=== PATIENT | female | born 1955 | race Two or more races ===

== ENCOUNTER 2018-10-31 20:29 | Inpatient (IN) | payer MEDICAID ==
[~2018-10-31] VITALS: Ht 172.7 cm; Wt 49.9 kg
[2018-11-01] MEDS ORDERED: SODIUM CHLORIDE 0.9% 1,000 ML IV ONE (00:11)
[2018-11-01] MEDS ORDERED: MORPHINE SULFATE 4 MG/ML CPJ (NOT FOR IM USE) IV STA (00:11)
[2018-11-01] MEDS ORDERED: ONDANSETRON HCL 4MG/2ML INJ IV STA (00:11)
[2018-11-01 00:40] LABS: HEMATOCRIT. 31.3 % (36.0-48.0); HEMOGLOBIN. 10.4 g/dL (12.0-16.0); MEAN CORPUSCULAR HEMOGLOBIN 27.1 pg (28.0-32.0); MEAN PLATELET VOLUME 6.6 fl (7.4-10.4); PLATELET 255 x1000/uL (130-400); RED BLOOD CELL COUNT 3.82 mill/uL (4.2-5.4); RED CELL DISTRIBUTION WIDTH 20.1 % (11.6-14.6)
[2018-11-01 00:46] LABS: CHLORIDE 105 mEq/L (98-107)
[2018-11-01 00:50] LABS: INR 1.1; PARTIAL THROMBOPLASTIN TIME 34.7 sec (23.4-31.0); PROTHROMBIN TIME 11.5 sec (9.1-11.1)
[2018-11-01] MEDS ORDERED: VANCOMYCIN 1 G PREMIX 200 ML IV ONE (03:30)
[2018-11-01] MEDS ORDERED: ONDANSETRON HCL 4MG/2ML INJ IV ONE (03:30)
[2018-11-01] MEDS ORDERED: PIPERACILLIN/TAZ 3.375G PREMIX 50 ML IV ONE (03:30)
[2018-11-01] MEDS ORDERED: SODIUM CHLORIDE 0.9% 1000ML BAG (SEPSIS BOLUS) IV ONE (03:30)
[2018-11-01] MEDS ORDERED: MORPHINE SULFATE 2 MG/ML CPJ (NOT FOR IM USE) IV ONE (03:30)
[2018-11-01] MEDS ORDERED: ACETAMINOPHEN 325MG TABLET PO PRN ×2 (03:45→13:00)
[2018-11-01] MEDS ORDERED: MORPHINE SULFATE 4 MG/ML CPJ (NOT FOR IM USE) IV NR (04:15)
[2018-11-01 04:29] LABS: CHLORIDE 105 mEq/L (98-107); INR 1.1; PROTHROMBIN TIME 11.5 sec (9.1-11.1)
[2018-11-01 05:00] LABS: PLATELET ESTIMATE NORMAL
[2018-11-01] MEDS: VANCOMYCIN 1 G PREMIX 200 ML IV NR ×2 (05:25→06:32)
[2018-11-01] MEDS ORDERED: MORPHINE SULFATE 4 MG/ML CPJ (NOT FOR IM USE) IV ONE (06:30)
[2018-11-01 12:00] VITALS: BP 119/74
[2018-11-01] MEDS ORDERED: MAGNESIUM HYDROXIDE 400MG/5ML 30ML UDC PO PRN (13:00)
[2018-11-01] MEDS ORDERED: MAGNESIUM/ALUMINUM HYDROXIDE/SIMETHICONE 30ML UDC PO PRN (13:00)
[2018-11-01] MEDS ORDERED: DIPHENHYDRAMINE 50MG/ML VIAL IV PRN (13:00)
[2018-11-01] MEDS ORDERED: ONDANSETRON HCL 4MG/2ML INJ IV PRN (13:00)
[2018-11-01] MEDS ORDERED: CLONIDINE 0.1MG TABLET PO PRN (13:00)
[2018-11-01] MEDS: SODIUM CHLORIDE 0.9% INJ 3ML FLUSH IVF SCH (14:00)
[2018-11-01] MEDS ORDERED: CEFAZOLIN 1000MG PREMIX 50 ML IV SCH (15:00)
[2018-11-01] MEDS ORDERED: VANCOMYCIN 750 MG PREMIX 150 ML IV SCH (15:00)
[2018-11-01] MEDS ORDERED: OXYCODONE HCL/ACETAMINOPHEN 5/325MG TABLET PO PRN (15:00)
[2018-11-01] MEDS ORDERED: ASCO-339 MT (15:44)
[2018-11-01] MEDS ORDERED: DET2 MT (15:44)
[2018-11-01] MEDS ORDERED: PROSTAT PO (15:44)
[2018-11-01] MEDS ORDERED: POLY17PO3 PO (15:44)
[2018-11-01] MEDS ORDERED: PROT40 MT (15:44)
[2018-11-01] MEDS ORDERED: MULT-230 MT (15:44)
[2018-11-01] MEDS ORDERED: ZINC220T MT (15:44)
[2018-11-01] MEDS ORDERED: TRAZ-213 MT (15:44)
[2018-11-01] MEDS ORDERED: BACL-141 MT (15:57)
[2018-11-01] MEDS ORDERED: HEPARIN SQ (15:57)
[2018-11-01] MEDS ORDERED: KEPP500 PO (15:57)
[2018-11-01] MEDS ORDERED: METR-218 PO (15:58)
[2018-11-01] MEDS ORDERED: MAGN800O PO (15:58)
[2018-11-01] MEDS ORDERED: CLAR10 MT (15:58)
[2018-11-01] MEDS ORDERED: CYAN10009 MT (15:58)
[2018-11-01] MEDS ORDERED: DOCU-150 MT (15:58)
[2018-11-01] MEDS ORDERED: [UNRECOGNIZED DRUG - CODE] IV (15:58)
[2018-11-01] MEDS ORDERED: CALC-889 MT (15:58)
[2018-11-01] MEDS ORDERED: VANCOMYCIN IV (15:58)
[2018-11-01 16:00] VITALS: BP 122/61
[2018-11-01] MEDS: METRONIDAZOLE 500MG TABLET PO SCH (16:14)
[2018-11-01] MEDS: HYDROMORPHONE HCL/PF 2MG/ML CPJ IV PRN (16:15)
[2018-11-01] MEDS: ENOXAPARIN 40MG/0.4ML SYR SUBCUT SCH (16:16)
[2018-11-01] MEDS ORDERED: DOCUSATE SODIUM 100MG CAPSULE PO SCH (17:00)
[2018-11-01] MEDS: TAMSULOSIN HCL 0.4MG SR CAPSULE PO SCH (17:21)
[2018-11-01] MEDS: CALCIUM CARBONATE/VITAMIN D3 500MG TABLET PO SCH (17:22)
[2018-11-01] MEDS: DOCUSATE SODIUM 100MG CAPSULE PO SCH (17:22)
[2018-11-01] MEDS: ASCORBIC ACID 500 MG TABLET PO SCH (17:22)
[2018-11-01] MEDS: VANCOMYCIN 750 MG PREMIX 150 ML IV SCH (17:22)
[2018-11-01 20:00] VITALS: BP 107/62
[2018-11-01] MEDS: GABAPENTIN 300MG CAPSULE PO SCH (21:19)
[2018-11-01] MEDS: PANTOPRAZOLE 40MG DR TABLET PO SCH (21:19)
[2018-11-01] MEDS: TRAZODONE HCL 100MG TABLET PO SCH (21:19)
[2018-11-01] MEDS: LEVETIRACETAM 500MG TABLET PO SCH (21:19)
[2018-11-01] MEDS: BACLOFEN 10MG TABLET PO SCH (21:19)
[2018-11-01] MEDS: FAMOTIDINE 20MG TABLET PO SCH (21:19)
[2018-11-01] MEDS: MORPHINE SULFATE 15MG TABLET SR PO SCH (21:20)
[2018-11-01] MEDS: MAGNESIUM HYDROXIDE 400MG/5ML 30ML UDC PO PRN (21:42)
[2018-11-02] VITALS: BP 106/54
[2018-11-02] MEDS: METRONIDAZOLE 500MG TABLET PO SCH ×4 (00:46→23:06)
[2018-11-02] MEDS: SODIUM CHLORIDE 0.9% INJ 3ML FLUSH IVF SCH ×4 (00:46→21:09)
[2018-11-02] MEDS: AZTREONAM 2 GM in DEXT 5% WATER 100 ML IV SCH ×3 (00:52→19:51)
[2018-11-02] MEDS: VANCOMYCIN 750 MG PREMIX 150 ML IV SCH ×2 (01:31→09:00)
[2018-11-02 04:00] VITALS: BP_SYST 106; BP_SYST 107; BP_DIAS 62; BP_DIAS 67
[2018-11-02] MEDS: GABAPENTIN 300MG CAPSULE PO SCH ×3 (06:30→21:08)
[2018-11-02] MEDS: PANTOPRAZOLE 40MG DR TABLET PO SCH ×2 (06:30→21:08)
[2018-11-02] MEDS: BACLOFEN 10MG TABLET PO SCH ×3 (06:30→21:08)
[2018-11-02] MEDS: CYANOCOBALAMIN 1000MCG TABLET PO SCH (06:31)
[2018-11-02] MEDS: HYDROMORPHONE HCL/PF 2MG/ML CPJ IV PRN ×2 (06:32→14:54)
[2018-11-02 08:00] VITALS: BP 91/54
[2018-11-02] MEDS: DOCUSATE SODIUM 100MG CAPSULE PO SCH ×2 (09:00→19:12)
[2018-11-02] MEDS: TAMSULOSIN HCL 0.4MG SR CAPSULE PO SCH (09:00)
[2018-11-02] MEDS: LORATADINE 10MG TABLET PO SCH (09:00)
[2018-11-02] MEDS: POLYETHYLENE GLYCOL 3350 (17GM) 1 DOSE PACK PO SCH (09:00)
[2018-11-02] MEDS ORDERED: ASCORBIC ACID 500 MG TABLET PO SCH (09:00)
[2018-11-02] MEDS: MULTIVITAMINS,THER W-MINERALS TABLET PO SCH (09:31)
[2018-11-02] MEDS: CALCIUM CARBONATE/VITAMIN D3 500MG TABLET PO SCH ×3 (09:31→19:12)
[2018-11-02] MEDS: ZINC SULFATE 220 MG ( 50 ) CAPSULE PO SCH (09:31)
[2018-11-02] MEDS: ASCORBIC ACID 500 MG TABLET PO SCH ×2 (09:31→19:12)
[2018-11-02] MEDS: LEVETIRACETAM 500MG TABLET PO SCH ×2 (09:31→21:08)
[2018-11-02] MEDS: MORPHINE SULFATE 15MG TABLET SR PO SCH ×2 (09:36→21:08)
[2018-11-02 12:00] VITALS: BP 107/63
[2018-11-02 12:55] LABS: CHLORIDE 106 mEq/L (98-107)
[2018-11-02] MEDS: ENOXAPARIN 40MG/0.4ML SYR SUBCUT SCH (14:19)
[2018-11-02 16:00] VITALS: BP 88/60
[2018-11-02] MEDS ORDERED: LIDOCAINE HCL/EPINEPHRINE 1%-EPI 1:100,000 30 ML VIAL INFIL NR (16:00)
[2018-11-02] MEDS ORDERED: LIDOCAINE HCL/EPINEPHRINE 1%-EPI 1:100,000 20 ML VIAL INFIL NR (16:00)
[2018-11-02] MEDS: MAGNESIUM HYDROXIDE 400MG/5ML 30ML UDC PO PRN (19:51)
[2018-11-02 20:00] VITALS: BP 119/65
[2018-11-02] MEDS: TRAZODONE HCL 100MG TABLET PO SCH (21:08)
[2018-11-02] MEDS: FAMOTIDINE 20MG TABLET PO SCH (21:08)
[2018-11-02] MEDS: VANCOMYCIN 1 G PREMIX 200 ML IV SCH (23:06)
[2018-11-03] VITALS: BP 87/39
[2018-11-03] MEDS: AZTREONAM 2 GM in DEXT 5% WATER 100 ML IV SCH ×3 (02:31→17:21)
[2018-11-03 04:00] VITALS: BP 105/51
[2018-11-03] MEDS: SODIUM CHLORIDE 0.9% INJ 3ML FLUSH IVF SCH ×2 (05:08→14:00)
[2018-11-03] MEDS: BACLOFEN 10MG TABLET PO SCH ×3 (06:30→21:42)
[2018-11-03] MEDS: GABAPENTIN 300MG CAPSULE PO SCH ×3 (06:30→21:43)
[2018-11-03] MEDS: METRONIDAZOLE 500MG TABLET PO SCH ×2 (06:30→17:20)
[2018-11-03] MEDS: PANTOPRAZOLE 40MG DR TABLET PO SCH ×2 (06:31→21:49)
[2018-11-03] MEDS: HYDROMORPHONE HCL/PF 2MG/ML CPJ IV PRN ×3 (06:32→17:53)
[2018-11-03] MEDS: VANCOMYCIN 1 G PREMIX 200 ML IV SCH ×2 (06:50→17:21)
[2018-11-03 08:00] VITALS: BP 105/64
[2018-11-03] MEDS: MULTIVITAMINS,THER W-MINERALS TABLET PO SCH (08:22)
[2018-11-03] MEDS: CALCIUM CARBONATE/VITAMIN D3 500MG TABLET PO SCH ×3 (08:22→17:20)
[2018-11-03] MEDS: DOCUSATE SODIUM 100MG CAPSULE PO SCH ×2 (08:22→17:20)
[2018-11-03] MEDS: ASCORBIC ACID 500 MG TABLET PO SCH ×2 (08:23→17:20)
[2018-11-03] MEDS: TAMSULOSIN HCL 0.4MG SR CAPSULE PO SCH (08:23)
[2018-11-03] MEDS: CYANOCOBALAMIN 1000MCG TABLET PO SCH (08:23)
[2018-11-03] MEDS: MORPHINE SULFATE 15MG TABLET SR PO SCH ×2 (08:23→23:21)
[2018-11-03] MEDS: LORATADINE 10MG TABLET PO SCH (08:23)
[2018-11-03] MEDS: LEVETIRACETAM 500MG TABLET PO SCH ×2 (08:23→21:43)
[2018-11-03] MEDS: POLYETHYLENE GLYCOL 3350 (17GM) 1 DOSE PACK PO SCH (08:24)
[2018-11-03] MEDS: ZINC SULFATE 220 MG ( 50 ) CAPSULE PO SCH (08:30)
[2018-11-03] MEDS: MAGNESIUM HYDROXIDE 400MG/5ML 30ML UDC PO PRN (08:30)
[2018-11-03 12:00] VITALS: BP 103/67
[2018-11-03] MEDS: ENOXAPARIN 40MG/0.4ML SYR SUBCUT SCH (14:08)
[2018-11-03 20:00] VITALS: BP 91/49
[2018-11-03] MEDS: FAMOTIDINE 20MG TABLET PO SCH (21:43)
[2018-11-03] MEDS: TRAZODONE HCL 100MG TABLET PO SCH (21:57)
[2018-11-04] VITALS: BP 107/63
[2018-11-04] MEDS: METRONIDAZOLE 500MG TABLET PO SCH ×3 (02:32→17:21)
[2018-11-04] MEDS: HYDROMORPHONE HCL 2MG TABLET PO PRN ×3 (02:32→22:35)
[2018-11-04] MEDS: AZTREONAM 2 GM in DEXT 5% WATER 100 ML IV SCH ×3 (02:34→17:22)
[2018-11-04 04:00] VITALS: BP 91/50
[2018-11-04] MEDS: BACLOFEN 10MG TABLET PO SCH ×2 (07:34→14:15)
[2018-11-04] MEDS: PANTOPRAZOLE 40MG DR TABLET PO SCH (07:34)
[2018-11-04] MEDS: GABAPENTIN 300MG CAPSULE PO SCH ×2 (07:34→14:15)
[2018-11-04] MEDS: VANCOMYCIN 1 G PREMIX 200 ML IV SCH ×2 (07:34→20:42)
[2018-11-04 08:00] VITALS: BP 91/46
[2018-11-04] MEDS: ZINC SULFATE 220 MG ( 50 ) CAPSULE PO SCH (08:50)
[2018-11-04] MEDS: MULTIVITAMINS,THER W-MINERALS TABLET PO SCH (08:50)
[2018-11-04] MEDS: MORPHINE SULFATE 15MG TABLET SR PO SCH ×2 (08:51→20:44)
[2018-11-04] MEDS: TAMSULOSIN HCL 0.4MG SR CAPSULE PO SCH (08:51)
[2018-11-04] MEDS: POLYETHYLENE GLYCOL 3350 (17GM) 1 DOSE PACK PO SCH (08:51)
[2018-11-04] MEDS: DOCUSATE SODIUM 100MG CAPSULE PO SCH ×2 (08:51→17:21)
[2018-11-04] MEDS: CYANOCOBALAMIN 1000MCG TABLET PO SCH (08:51)
[2018-11-04] MEDS: CALCIUM CARBONATE/VITAMIN D3 500MG TABLET PO SCH ×3 (08:51→17:21)
[2018-11-04] MEDS: LEVETIRACETAM 500MG TABLET PO SCH ×2 (08:51→20:43)
[2018-11-04] MEDS: LORATADINE 10MG TABLET PO SCH (08:51)
[2018-11-04] MEDS: ASCORBIC ACID 500 MG TABLET PO SCH ×2 (08:51→17:21)
[2018-11-04 12:00] VITALS: BP 96/50
[2018-11-04] MEDS: ENOXAPARIN 40MG/0.4ML SYR SUBCUT SCH (14:16)
[2018-11-04 16:00] VITALS: BP 96/59
[2018-11-04 20:00] VITALS: BP 98/55
[2018-11-04] MEDS: FAMOTIDINE 20MG TABLET PO SCH (20:43)
[2018-11-04] MEDS: TRAZODONE HCL 100MG TABLET PO SCH (20:43)
[2018-11-05] MEDS ORDERED: LEVETIRACETAM 500 MG in SODIUM CHLORIDE 0.9% 100 ML IV NR ×2
[2018-11-05] MEDS: GABAPENTIN 300MG CAPSULE PO SCH ×3 (00:04→13:38)
[2018-11-05] MEDS: BACLOFEN 10MG TABLET PO SCH ×3 (00:05→13:38)
[2018-11-05] MEDS: METRONIDAZOLE 500MG TABLET PO SCH ×3 (00:05→15:55)
[2018-11-05] MEDS ORDERED: LORAZEPAM 1MG TABLET PO NR (00:15)
[2018-11-05] MEDS: AZTREONAM 2 GM in DEXT 5% WATER 100 ML IV SCH ×3 (01:57→17:00)
[2018-11-05 04:00] VITALS: BP 120/82
[2018-11-05 08:00] VITALS: BP 98/62
[2018-11-05] MEDS: ZINC SULFATE 220 MG ( 50 ) CAPSULE PO SCH (08:22)
[2018-11-05] MEDS: ASCORBIC ACID 500 MG TABLET PO SCH ×2 (08:22→17:00)
[2018-11-05] MEDS: MULTIVITAMINS,THER W-MINERALS TABLET PO SCH (08:22)
[2018-11-05] MEDS: CYANOCOBALAMIN 1000MCG TABLET PO SCH (08:22)
[2018-11-05] MEDS: LORATADINE 10MG TABLET PO SCH (08:22)
[2018-11-05] MEDS: MORPHINE SULFATE 15MG TABLET SR PO SCH (08:23)
[2018-11-05] MEDS: TAMSULOSIN HCL 0.4MG SR CAPSULE PO SCH (08:23)
[2018-11-05] MEDS: CALCIUM CARBONATE/VITAMIN D3 500MG TABLET PO SCH ×3 (08:23→17:00)
[2018-11-05] MEDS: DOCUSATE SODIUM 100MG CAPSULE PO SCH ×2 (08:23→17:00)
[2018-11-05] MEDS: POLYETHYLENE GLYCOL 3350 (17GM) 1 DOSE PACK PO SCH (08:24)
[2018-11-05] MEDS ORDERED: LEVETIRACETAM 500 MG in SODIUM CHLORIDE 0.9% 100 ML IV SCH (09:00)
[2018-11-05] MEDS: VANCOMYCIN 1 G PREMIX 200 ML IV SCH (11:15)
[2018-11-05 12:00] VITALS: BP 112/68
[2018-11-05] MEDS: ENOXAPARIN 40MG/0.4ML SYR SUBCUT SCH (13:39)
[2018-11-05] MEDS: SODIUM CHLORIDE 0.9% INJ 3ML FLUSH IVF SCH (13:44)
[2018-11-05] MEDS: HYDROMORPHONE HCL 2MG TABLET PO PRN (15:55)
[2018-11-05 16:00] VITALS: BP 112/62
[2018-11-05 16:32] VITALS: BP 112/62
== END 2018-11-05 17:55 | DRG 364 ==
LOC: ER 20:29 → 6EST 11-01 03:36 → ENRESERV 11-01 09:01
PROVIDERS: ADMIT Internal Medicine; ATTEND Internal Medicine
PROC: 0KBP0ZZ Excision of Left Hip Muscle, Open Approach (ICD-10-PCS; principal; 2018-11-03)
PROC: 0KBN0ZZ Excision of Right Hip Muscle, Open Approach (ICD-10-PCS; 2018-11-03)
DX: L89.154 Pressure ulcer of sacral region, stage 4 (principal); E43 Unspecified severe protein-calorie malnutrition; G61.0 Guillain-Barre syndrome; L89.220 Pressure ulcer of left hip, unstageable; L89.210 Pressure ulcer of right hip, unstageable; L03.317 Cellulitis of buttock; G82.20 Paraplegia, unspecified; G62.9 Polyneuropathy, unspecified; N31.9 Neuromuscular dysfunction of bladder, unspecified; R26.2 Difficulty in walking, not elsewhere classified; G40.909 Epilepsy, unspecified, not intractable, without status epilepticus; F32.9 Major depressive disorder, single episode, unspecified; M79.7 Fibromyalgia; Z83.3 Family history of diabetes mellitus; Z74.01 Bed confinement status; Z68.1 Body mass index [BMI] 19.9 or less, adult; Z90.49 Acquired absence of other specified parts of digestive tract; Z79.899 Other long term (current) drug therapy
CPT/HCPCS: 36415; 71045; 72192; 80048; 80202; 83605; 84134; 84145; 84484; 86850; 86900; 87070; 87077; 87186; 93005; 93970; 96374; 96375; 96376; 97110; 97112; 97163; 99285; J0690; J1170; J1650; J1953; J2270; J2405; J2543; J3370; J3490; J7030; J7040; J7050; J7060; A4315

== ENCOUNTER 2019-04-24 07:13 | Emergency (ER) | payer MEDICAID ==
[~2019-04-24] VITALS: Ht 167.6 cm; Wt 56.0 kg
[~2019-04-24 07:13] MED LIST: ASCO-339 MT; BACL-141 MT; CALC-889 MT; CLAR10 MT; CYAN10009 MT; DET2 MT; DOCU-150 MT; HEPARIN SQ; KEPP500 PO; MAGN800O PO; METR-167 PO; MULT-230 MT; POLY17PO3 PO; PROSTAT PO; PROT40 MT; TRAZ-213 MT; VANCOMYCIN IV; ZINC220T MT; [UNRECOGNIZED DRUG - CODE] IV
[2019-04-24] MEDS ORDERED: LEVETIRACETAM 1000MG/100ML 100 ML IV ONE (07:30)
[2019-04-24 07:37] LABS: BASOPHILS % 0.6 % (0.0-2.0); EOSINOPHILS % 0.9 % (0.0-5.0); HEMATOCRIT. 41.7 % (36.0-48.0); LYMPHOCYTES % 44.4 % (20.0-50.0); MEAN CORPUSCULAR HEMOGLOBIN 27.7 pg (28.0-32.0); MEAN CORPUSCULAR VOLUME 82.6 fL (81.0-99.0); MEAN PLATELET VOLUME 7.3 fl (7.4-10.4); MONOCYTES % 7.7 % (2.0-8.0); NEUTROPHILS % 46.4 % (40.0-76.0); PLATELET 231 x1000/uL (130-400); RED BLOOD CELL COUNT 5.05 mill/uL (4.2-5.4); RED CELL DISTRIBUTION WIDTH 15.6 % (11.6-14.6)
[2019-04-24 07:42] LABS: CHLORIDE 105 mEq/L (98-107)
[2019-04-24 07:44] LABS: INR 1.1; PROTHROMBIN TIME 11.3 sec (9.6-11.0)
[2019-04-24] MEDS ORDERED: ONDANSETRON HCL 4MG/2ML INJ IV ONE (08:15)
[2019-04-24] MEDS ORDERED: SODIUM CHLORIDE 0.9% 1,000 ML IV ONE (08:15)
[2019-04-24 11:20] LABS: CLARITY URINE CLOUDY (CLEAR); COLOR URINE YELLOW (YELLOW); KETONES URINE 1+ (NEGATIVE); LEUKOCYTE ESTERASE URINE 2+ (NEGATIVE); NITRITE URINE NEGATIVE (NEGATIVE); OCCULT BLOOD URINE 2+ (NEGATIVE); PH URINE 6.5 (4.5-8.0); PROTEIN URINE 3+ (NEGATIVE); SPECIFIC GRAVITY URINE 1.021 (1.005-1.030)
[2019-04-24] MEDS ORDERED: KETOROLAC 15MG/ML VIAL IV ONE (11:30)
[2019-04-24] MEDS ORDERED: CEFTRIAXONE 1 G PREMIX 50 ML IV NR (11:45)
[2019-04-24 12:50] VITALS: BP 128/68
== END 2019-04-24 12:58 | disposition home or self-care (01) ==
LOC: ER 07:17
DX: G40.909 Epilepsy, unspecified, not intractable, without status epilepticus (principal); R11.2 Nausea with vomiting, unspecified; R10.9 Unspecified abdominal pain; N39.0 Urinary tract infection, site not specified; K21.9 Gastro-esophageal reflux disease without esophagitis; M79.7 Fibromyalgia; G61.0 Guillain-Barre syndrome; G82.20 Paraplegia, unspecified
CPT/HCPCS: 36415; 71045; 80053; 81003; 85025; 85610; 87077; 87086; 87186; 93005; 96365; 96367; 96375; 99284; J0696; J1885; J1953; J2405; Z7610

== ENCOUNTER 2019-07-31 11:59 | Emergency (ER) | payer MEDICAID, MEDICARE ==
[~2019-07-31] VITALS: Ht 167.6 cm; Wt 69.0 kg
[~2019-07-31 11:59] MED LIST changes: +CYAN-50 MT; -CYAN10009 MT; -ZINC220T MT; +ZINC220T4 MT
[2019-07-31] MEDS ORDERED: SODIUM CHLORIDE 0.9% 1,000 ML IV ONE (12:14)
[2019-07-31 12:39] LABS: BASOPHILS % 1.1 % (0.0-2.0); EOSINOPHILS % 5.6 % (0.0-5.0); HEMATOCRIT. 36.8 % (36.0-48.0); HEMOGLOBIN. 12.4 g/dL (12.0-16.0); LYMPHOCYTES % 27.5 % (20.0-50.0); MEAN CORPUSCULAR HEMOGLOBIN 28.6 pg (28.0-32.0); MEAN CORPUSCULAR VOLUME 85.1 fL (81.0-99.0); MEAN PLATELET VOLUME 7.1 fl (7.4-10.4); MONOCYTES % 10.4 % (2.0-8.0); NEUTROPHILS % 55.4 % (40.0-76.0); PLATELET 223 x1000/uL (130-400); RED BLOOD CELL COUNT 4.33 mill/uL (4.2-5.4); RED CELL DISTRIBUTION WIDTH 13.7 % (11.6-14.6)
[2019-07-31 12:46] LABS: INR 1.1; PROTHROMBIN TIME 10.9 sec (9.6-11.0)
[2019-07-31 12:47] LABS: CHLORIDE 108 mEq/L (98-107)
[2019-07-31 12:51] LABS: ETHANOL BLOOD < 10 mg/dL
[2019-07-31 12:58] LABS: CARBAMAZEPINE < 0.5 ug/mL (4-12); PHENOBARBITAL < 2.1 ug/mL (15.0-40.0); VALPROIC ACID < 3.0 ug/mL (50-100)
[2019-07-31 14:18] LABS: CLARITY URINE CLOUDY (CLEAR); COLOR URINE YELLOW (YELLOW); KETONES URINE TRACE (NEGATIVE); LEUKOCYTE ESTERASE URINE 3+ (NEGATIVE); NITRITE URINE POSITIVE (NEGATIVE); OCCULT BLOOD URINE 3+ (NEGATIVE); PROTEIN URINE TRACE (NEGATIVE)
[2019-07-31 14:34] LABS: METHADONE URINE SCREEN NEGATIVE (NEGATIVE); OPIATES URINE SCREEN PRESUMTIVE POSITIVE (NEGATIVE); PHENCYCLIDINE URINE SCREEN NEGATIVE (NEGATIVE)
[2019-07-31 14:35] LABS: *AMPHETAMINES SCREEN URINE NEGATIVE (NEGATIVE); *BARBITURATES SCREEN URINE NEGATIVE (NEGATIVE); *BENZODIAZEPINES SCREEN URINE NEGATIVE (NEGATIVE); *COCAINE SCREEN URINE NEGATIVE (NEGATIVE); CANNABINOID URINE SCREEN NEGATIVE (NEGATIVE)
[2019-07-31] MEDS ORDERED: CEFTRIAXONE 1 G PREMIX 50 ML IV ONE (15:15)
[2019-07-31] MEDS ORDERED: ONDANSETRON HCL 4MG/2ML INJ IV STA (15:24)
[2019-07-31] MEDS ORDERED: MORPHINE SULFATE 4 MG/ML CPJ (NOT FOR IM USE) IV STA (15:24)
[2019-07-31 19:07] VITALS: BP 105/61
== END 2019-07-31 19:19 ==
LOC: ER 11:59 → CANBEDREQ 17:37 → ER 19:19
DX: R56.9 Unspecified convulsions (principal); N39.0 Urinary tract infection, site not specified; G89.29 Other chronic pain; K21.9 Gastro-esophageal reflux disease without esophagitis; M79.7 Fibromyalgia; G61.0 Guillain-Barre syndrome; Z94.1 Heart transplant status
CPT/HCPCS: 36415; 51702; 70450; 71045; 80053; 80156; 80165; 80184; 80185; 80305; 80320; 81003; 83605; 84484; 85025; 85610; 87040; 87077; 87086; 87186; 93005; 96365; 96366; 96375; 99284; J0696; J2270; J2405; J7030; G0480

== ENCOUNTER 2022-01-16 14:36 | Inpatient (IN) | payer MEDICARE, MEDICAID ==
[~2022-01-16] VITALS: Ht 172.7 cm; Wt 95.7 kg
[~2022-01-16 14:36] MED LIST changes: +MAGN24002 PO; -MAGN800O PO; -TRAZ-213 MT; +TRAZ-252 MT
[2022-01-16] MEDS ORDERED: SODIUM CHLORIDE 0.9% 1000ML BAG (SEPSIS BOLUS) IV ONE (15:00)
[2022-01-16] MEDS ORDERED: VANCOMYCIN 1G PREMIX 200 ML IV ONE (15:00)
[2022-01-16] MEDS ORDERED: PIPERACILLIN/TAZ 3.375G PREMIX 50 ML IV ONE (15:00)
[2022-01-16] MEDS ORDERED: VANCOMYCIN 1GM PMX (XELLIA) 200 ML IV SCH (15:15)
[2022-01-16] MEDS ORDERED: ACETAMINOPHEN 650MG SUPP PR ONE (15:30)
[2022-01-16 15:58] LABS: CLARITY URINE CLOUDY (CLEAR); COLOR URINE YELLOW (YELLOW); KETONES URINE 1+ (NEGATIVE); LEUKOCYTE ESTERASE URINE 1+ (NEGATIVE); NITRITE URINE POSITIVE (NEGATIVE); OCCULT BLOOD URINE NEGATIVE (NEGATIVE); PH URINE 5.5 (4.5-8.0); PROTEIN URINE TRACE (NEGATIVE); SPECIFIC GRAVITY URINE 1.027 (1.005-1.030)
[2022-01-16 16:10] LABS: HEMATOCRIT. 40.9 % (36.0-48.0); HEMOGLOBIN. 13.6 g/dL (12.0-16.0); LYMPHOCYTES % 23.4 % (20.0-50.0); MEAN CORPUSCULAR HEMOGLOBIN 28.1 pg (28.0-32.0); MEAN CORPUSCULAR VOLUME 84.6 fL (81.0-99.0); MEAN PLATELET VOLUME 9.4 fl (7.4-10.4); MONOCYTES % 2.7 % (2.0-8.0); NEUTROPHILS % 72.9 % (40.0-76.0); PLATELET 160 x1000/uL (130-400); RED BLOOD CELL COUNT 4.84 mill/uL (4.2-5.4); RED CELL DISTRIBUTION WIDTH 14.1 % (11.6-14.6)
[2022-01-16 16:18] LABS: CHLORIDE 113 mEq/L (98-107)
[2022-01-16] MEDS ORDERED: IPRATROPIUM/ALBUTEROL 0.5-3(2.5)MG/3ML NEB HHN PRN (19:15)
[2022-01-16] MEDS ORDERED: PIPERACILLIN/TAZOBACTAM 3.375 G in DEXTROSE 5% WATER 50 ML IV SCH (19:15)
[2022-01-16] MEDS ORDERED: CLONIDINE 0.1MG TABLET PO PRN (19:15)
[2022-01-16] MEDS ORDERED: ONDANSETRON HCL 4MG/2ML INJ IV PRN (19:15)
[2022-01-16] MEDS ORDERED: ACETAMINOPHEN 325MG TABLET PO PRN (19:15)
[2022-01-16] MEDS: PIPERACILLIN/TAZOBACTAM 3.375G in DEXT 5% WATER 50ML IV SCH (22:24)
[2022-01-17 04:19] LABS: BASOPHILS % 0.3 % (0.0-2.0); EOSINOPHILS % 0.2 % (0.0-5.0); HEMATOCRIT. 36.9 % (36.0-48.0); HEMOGLOBIN. 12.1 g/dL (12.0-16.0); LYMPHOCYTES % 39.6 % (20.0-50.0); MEAN CORPUSCULAR HEMOGLOBIN 28.3 pg (28.0-32.0); MEAN CORPUSCULAR VOLUME 86.1 fL (81.0-99.0); MEAN PLATELET VOLUME 8.6 fl (7.4-10.4); NEUTROPHILS % 47.9 % (40.0-76.0); PLATELET 112 x1000/uL (130-400); RED BLOOD CELL COUNT 4.28 mill/uL (4.2-5.4); RED CELL DISTRIBUTION WIDTH 14.3 % (11.6-14.6)
[2022-01-17 04:31] LABS: CHLORIDE 120 mEq/L (98-107)
[2022-01-17] MEDS ORDERED: DEXTROSE 50% WATER 50ML SYRINGE IV PRN (06:15)
[2022-01-17] MEDS: BLOOD SUGAR DIAGNOSTIC STRIP TEST SCH ×2 (06:19→11:31)
[2022-01-17] MEDS: INSULIN LISPRO 100 UNITS/ML SUBCUT SCH ×3 (06:19→12:40)
[2022-01-17] MEDS: PIPERACILLIN/TAZOBACTAM 3.375G in DEXT 5% WATER 50ML IV SCH ×3 (06:44→21:59)
[2022-01-17] MEDS ORDERED: VANCOMYCIN 1,000 MG in DEXT 5% WATER 250 ML IV SCH (09:30)
[2022-01-17 12:00] VITALS: BP 105/66
[2022-01-17] MEDS ORDERED: POTASSIUM CHLORIDE INJ 40 MEQ in DEXT 5% WATER 250 ML IV NR (13:00)
[2022-01-17] MEDS ORDERED: POLYETHYLENE GLYCOL 3350 (17GM) 1 DOSE PACK PO PRN (14:45)
[2022-01-17 15:33] VITALS: BP 105/66
[2022-01-17 16:00] VITALS: BP 110/68
[2022-01-17] MEDS ORDERED: POTASSIUM PHOS,M-BASIC-D-BASIC 20 MMOL in DEXT 5% WATER 243.3333 ML IV ONE (16:00)
[2022-01-17] MEDS ORDERED: POTASSIUM CHLORIDE 20MEQ/PACKET PO NR (16:30)
[2022-01-17] MEDS ORDERED: LEVETIRACETAM 500MG TABLET PO SCH (17:00)
[2022-01-17] MEDS: DOCUSATE SODIUM 100MG CAPSULE PO SCH (17:35)
[2022-01-17] MEDS ORDERED: KCL 20MEQ/100ML PREMIX 100 ML IV NR (18:00)
[2022-01-17 20:00] VITALS: BP 117/67
[2022-01-17] MEDS: TRAZODONE HCL 50MG TABLET PO SCH (21:59)
[2022-01-17 23:49] VITALS: BP 129/57
[2022-01-18] MEDS: DIPHENHYDRAMINE 50MG/ML VIAL IV PRN ×2 (01:35→08:43)
[2022-01-18 04:00] VITALS: BP 111/67
[2022-01-18] MEDS: VANCOMYCIN 1GM PMX (XELLIA) 200 ML IV SCH ×2 (04:06→18:21)
[2022-01-18] MEDS: PIPERACILLIN/TAZOBACTAM 3.375G in DEXT 5% WATER 50ML IV SCH ×3 (06:20→22:00)
[2022-01-18 08:00] VITALS: BP 124/78
[2022-01-18] MEDS: MULTIVITAMINS,THER W-MINERALS TABLET PO SCH (08:41)
[2022-01-18] MEDS: LORATADINE 10MG TABLET PO SCH (08:42)
[2022-01-18] MEDS: PANTOPRAZOLE 40MG DR TABLET PO SCH (08:42)
[2022-01-18] MEDS: DOCUSATE SODIUM 100MG CAPSULE PO SCH ×2 (08:42→17:00)
[2022-01-18] MEDS: CYANOCOBALAMIN 1000MCG TABLET PO SCH (08:42)
[2022-01-18] MEDS ORDERED: MORPHINE SULFATE 2 MG/ML CPJ (NOT FOR IM USE) IV PRN (09:30)
[2022-01-18] MEDS ORDERED: HYDROCODONE/ACETAMINOPHEN 5/325MG TABLET PO PRN (09:30)
[2022-01-18 12:00] VITALS: BP 130/65
[2022-01-18 13:37] LABS: CHLORIDE 118 mEq/L (98-107)
[2022-01-18 13:44] LABS: PHOSPHORUS 2.4 mg/dL (2.5-4.9)
[2022-01-18 16:00] VITALS: BP 124/62
[2022-01-18 20:00] VITALS: BP 146/77
[2022-01-19] VITALS: BP 154/82
[2022-01-19] MEDS: TRAZODONE HCL 50MG TABLET PO SCH ×2 (01:34→20:45)
[2022-01-19] MEDS: VANCOMYCIN 750 MG in DEXT 5% WATER 250 ML IV SCH ×2 (06:00→15:46)
[2022-01-19] MEDS: PIPERACILLIN/TAZOBACTAM 3.375G in DEXT 5% WATER 50ML IV SCH ×3 (06:00→22:00)
[2022-01-19 06:59] LABS: BASOPHILS % 0.5 % (0.0-2.0); HEMATOCRIT. 36.4 % (36.0-48.0); HEMOGLOBIN. 12.2 g/dL (12.0-16.0); LYMPHOCYTES % 33.4 % (20.0-50.0); MEAN CORPUSCULAR VOLUME 84.1 fL (81.0-99.0); MEAN PLATELET VOLUME 9.2 fl (7.4-10.4); MONOCYTES % 7.8 % (2.0-8.0); NEUTROPHILS % 55.3 % (40.0-76.0); PLATELET 139 x1000/uL (130-400); RED BLOOD CELL COUNT 4.33 mill/uL (4.2-5.4); RED CELL DISTRIBUTION WIDTH 14.4 % (11.6-14.6)
[2022-01-19 07:07] LABS: CHLORIDE 115 mEq/L (98-107)
[2022-01-19 08:00] VITALS: BP 147/83
[2022-01-19] MEDS ORDERED: THIAMINE HCL 100MG TABLET ONE (09:27)
[2022-01-19] MEDS ORDERED: DOCUSATE SODIUM 100MG CAPSULE ONE (09:28)
[2022-01-19] MEDS ORDERED: PANTOPRAZOLE 40MG DR TABLET PO ONE (09:29)
[2022-01-19] MEDS: MULTIVITAMINS,THER W-MINERALS TABLET PO SCH (09:42)
[2022-01-19] MEDS: LORATADINE 10MG TABLET PO SCH (09:42)
[2022-01-19] MEDS: CYANOCOBALAMIN 1000MCG TABLET PO SCH (09:43)
[2022-01-19] MEDS: DOCUSATE SODIUM 100MG CAPSULE PO SCH ×2 (09:43→16:07)
[2022-01-19] MEDS: PANTOPRAZOLE 40MG DR TABLET PO SCH (09:43)
[2022-01-19] MEDS ORDERED: POTASSIUM CHLORIDE 20MEQ TABLET SR PO NR (11:00)
[2022-01-19 12:00] VITALS: BP 154/75
[2022-01-19 16:00] VITALS: BP 150/73
[2022-01-19 20:00] VITALS: BP 123/70
[2022-01-19 23:46] VITALS: BP 130/68
[2022-01-20 04:00] VITALS: BP 137/73
[2022-01-20] MEDS: PIPERACILLIN/TAZOBACTAM 3.375G in DEXT 5% WATER 50ML IV SCH ×2 (06:00→13:44)
[2022-01-20] MEDS ORDERED: VANCOMYCIN 750MG PMX (XELLIA) 150 ML IV SCH (06:00)
[2022-01-20 08:00] VITALS: BP 152/74
[2022-01-20] MEDS ORDERED: FAMOTIDINE 20MG TABLET PO SCH (09:00)
[2022-01-20] MEDS: CYANOCOBALAMIN 1000MCG TABLET PO SCH (09:00)
[2022-01-20] MEDS: DOCUSATE SODIUM 100MG CAPSULE PO SCH ×2 (09:36→17:00)
[2022-01-20] MEDS: MULTIVITAMINS,THER W-MINERALS TABLET PO SCH (09:37)
[2022-01-20] MEDS: LORATADINE 10MG TABLET PO SCH (09:38)
[2022-01-20 10:48] LABS: CHLORIDE 109 mEq/L (98-107)
[2022-01-20 12:00] VITALS: BP 132/80
[2022-01-20] MEDS ORDERED: POTASSIUM CHLORIDE 20MEQ TABLET SR PO NR (13:00)
[2022-01-20 16:00] VITALS: BP 146/75
[2022-01-20 19:31] VITALS: BP 146/75
[2022-01-20 19:45] VITALS: BP 165/90
== END 2022-01-20 21:05 | DRG 871 ==
LOC: ER 14:42 → EDBEDREQ 16:20 → MICUSO 17:28 → EDBEDREQTM 17:29 → EDBEDREQSVC 17:29 → EDBEDREQ 17:29 → 8WST 01-17 12:24
PROVIDERS: ADMIT Internal Medicine; ATTEND Internal Medicine
PROC: 02HV33Z Insertion of Infusion Device into Superior Vena Cava, Percutaneous Approach (ICD-10-PCS; principal; 2022-01-20)
PROC: B5181ZA Fluoroscopy of Superior Vena Cava using Low Osmolar Contrast, Guidance (ICD-10-PCS; 2022-01-20)
PROC: B548ZZA Ultrasonography of Superior Vena Cava, Guidance (ICD-10-PCS; 2022-01-20)
DX: A41.2 Sepsis due to unspecified staphylococcus (principal); J18.9 Pneumonia, unspecified organism; G82.20 Paraplegia, unspecified; N39.0 Urinary tract infection, site not specified; G61.0 Guillain-Barre syndrome; E87.6 Hypokalemia; G40.909 Epilepsy, unspecified, not intractable, without status epilepticus; I10 Essential (primary) hypertension; M06.9 Rheumatoid arthritis, unspecified; F32.A Depression, unspecified; I25.10 Atherosclerotic heart disease of native coronary artery without angina pectoris; G62.9 Polyneuropathy, unspecified; F41.9 Anxiety disorder, unspecified; K21.9 Gastro-esophageal reflux disease without esophagitis; M19.90 Unspecified osteoarthritis, unspecified site; S90.31XA Contusion of right foot, initial encounter; I27.21 Secondary pulmonary arterial hypertension; I08.1 Rheumatic disorders of both mitral and tricuspid valves; B96.1 Klebsiella pneumoniae [K. pneumoniae] as the cause of diseases classified elsewhere; Z20.822 Contact with and (suspected) exposure to COVID-19; Z79.899 Other long term (current) drug therapy; Z95.1 Presence of aortocoronary bypass graft; X58.XXXA Exposure to other specified factors, initial encounter; Y93.89 Activity, other specified; Y92.89 Other specified places as the place of occurrence of the external cause; Y99.8 Other external cause status
CPT/HCPCS: 36415; 36573; 71045; 80048; 80053; 80202; 81003; 82962; 83036; 83605; 83735; 84100; 84145; 84484; 85025; 87077; 87186; 87426; 93005; 93306; 93970; 97022; 97162; 99291; C1725; C1769; C1893; J1200; J2270; J2543; J3370; J3480; J7030; J7060; A4315

== ENCOUNTER 2022-09-08 07:32 | Inpatient (IN) | payer MEDICARE, MEDICAID ==
[2022-09-08] VITALS (23 sets, daily range): BP systolic 62–106; BP diastolic 41–65
[~2022-09-08] VITALS: Ht 165.1 cm; Wt 89.4 kg
[~2022-09-08 07:32] MED LIST changes: -VANCOMYCIN IV
[2022-09-08] MEDS ORDERED: ACETAMINOPHEN 650MG SUPP PR STA (07:43)
[2022-09-08] MEDS ORDERED: VANCOMYCIN 1G PREMIX 200 ML IV ONE (07:45)
[2022-09-08] MEDS ORDERED: PIPERACILLIN/TAZ 3.375G PREMIX 50 ML IV ONE (07:45)
[2022-09-08] MEDS ORDERED: SODIUM CHLORIDE 0.9% 1000ML BAG (SEPSIS BOLUS) IV ONE (07:45)
[2022-09-08 08:30] LABS: HEMOGLOBIN. 14.5 g/dL (12.0-16.0); MEAN CORPUSCULAR HEMOGLOBIN 29.1 pg (28.0-32.0); MEAN CORPUSCULAR VOLUME 86.4 fL (81.0-99.0); MEAN PLATELET VOLUME 8.9 fl (7.4-10.4); PLATELET 233 x1000/uL (130-400); RED BLOOD CELL COUNT 4.98 mill/uL (4.2-5.4); RED CELL DISTRIBUTION WIDTH 13.8 % (11.6-14.6)
[2022-09-08 08:41] LABS: CHLORIDE 116 mEq/L (98-107)
[2022-09-08] MEDS ORDERED: NOREPINEPHRINE 8MG/250ML PMX 250 ML IV STA (09:38)
[2022-09-08 09:45] LABS: NUCLEATED RED BLOOD CELLS 1 /100 WBC; PLATELET ESTIMATE NORMAL
[2022-09-08] MEDS ORDERED: NOREPINEPHRINE 8 MG in DEXT 5% WATER 242 ML IV PRN (10:00)
[2022-09-08 10:29] LABS: INR 1.5; PROTHROMBIN TIME 15.5 sec (9.6-11.0)
[2022-09-08] MEDS ORDERED: NOREPINEPHRINE 8MG/250ML PMX 250 ML IV PRN (15:15)
[2022-09-08] MEDS ORDERED: NOREPINEPHRINE 8 MG in DEXTROSE 5% WATER 250 ML IV PRN (15:30)
[2022-09-08] MEDS ORDERED: ACETAMINOPHEN 325MG TABLET PO PRN (15:45)
[2022-09-08] MEDS ORDERED: PIPERACILLIN/TAZ 3.375G PREMIX 50 ML IV SCH (15:45)
[2022-09-08] MEDS ORDERED: ONDANSETRON HCL 4MG/2ML INJ IV PRN (15:45)
[2022-09-08] MEDS: SODIUM CHLORIDE 0.9% 1,000 ML IV SCH ×2 (15:58→16:57)
[2022-09-08] MEDS ORDERED: PIPERACILLIN/TAZ 3.375G PREMIX 50 ML IV NR (16:00)
[2022-09-08 17:33] LABS: BG BASE EXCESS -11.4 mmol/L (-2.0-2.0); BG CARBOXYHEMOGLOBIN 0.3 % (0.5-1.5); BG FRACTION INSPIRED OXYGEN 100; BG HCO3 ACT 13.1 mmol/L (22.0-26.0); BG METHEMOGLOBIN 0.6 % (0.0-1.5); BG OXYHEMOGLOBIN 97.1 % (94.0-97.0); BG PCO2 26.5 mmHg (35.0-45.0); BG PH 7.313 (7.350-7.450); BG PO2 102.9 mmHg (75.0-100.0); BG SAMPLE SITE RIGHT BRACHIAL; BG TOTAL HEMOGLOBIN 13.6 g/dL (12.0-18.0); BG VENT MODE MASK - NRB
[2022-09-08] MEDS ORDERED: DEXTROSE 50% WATER 50ML SYRINGE IV PRN (20:00)
[2022-09-08] MEDS ORDERED: POTASSIUM CHLORIDE INJ 40 MEQ in DEXT 5% WATER 500 ML IV ONE (20:00)
[2022-09-08] MEDS: PHENYLEPHRINE 50 MG in DEXT 5% WATER 245 ML IV PRN (20:38)
[2022-09-08] MEDS: INSULIN LISPRO 100 UNITS/ML SUBCUT SCH (21:00)
[2022-09-08] MEDS ORDERED: VANCOMYCIN 750MG PREMIX 150 ML IV NR (21:00)
[2022-09-08] MEDS: PANTOPRAZOLE SODIUM 40 MG/VIAL IV SCH (22:02)
[2022-09-08] MEDS: BLOOD SUGAR DIAGNOSTIC STRIP TEST SCH (22:02)
[2022-09-08] MEDS: ENOXAPARIN 30MG/0.3ML SYR SUBCUT SCH (22:06)
[2022-09-08] MEDS ORDERED: PIPERACILLIN/TAZOBACTAM 3.375G in DEXT 5% WATER 50ML IV SCH (23:00)
[2022-09-09] VITALS (97 sets, daily range): BP systolic 59–178; BP diastolic 27–109
[2022-09-09] MEDS: PIPERACILLIN/TAZOBACTAM 3.375G in DEXT 5% WATER 50ML IV SCH ×4 (00:05→21:12)
[2022-09-09 00:19] LABS: CLARITY URINE TURBID (CLEAR); COLOR URINE DARK YELLOW (YELLOW); KETONES URINE TRACE (NEGATIVE); LEUKOCYTE ESTERASE URINE 1+ (NEGATIVE); NITRITE URINE NEGATIVE (NEGATIVE); OCCULT BLOOD URINE TRACE (NEGATIVE); PROTEIN URINE 2+ (NEGATIVE); SPECIFIC GRAVITY URINE 1.024 (1.005-1.030)
[2022-09-09 01:19] LABS: CREATINE KINASE MB FRACTION 1.4 ng/mL (0.5-3.6)
[2022-09-09] MEDS: PHENYLEPHRINE 50 MG in DEXT 5% WATER 245 ML IV PRN ×5 (01:28→22:22)
[2022-09-09] MEDS: INSULIN LISPRO 100 UNITS/ML SUBCUT SCH ×4 (05:35→21:00)
[2022-09-09] MEDS: BLOOD SUGAR DIAGNOSTIC STRIP TEST SCH ×3 (05:35→21:11)
[2022-09-09 06:08] LABS: HEMATOCRIT. 35.6 % (36.0-48.0); HEMOGLOBIN. 11.8 g/dL (12.0-16.0); MEAN CORPUSCULAR HEMOGLOBIN 28.5 pg (28.0-32.0); MEAN CORPUSCULAR VOLUME 86.1 fL (81.0-99.0); MEAN PLATELET VOLUME 8.9 fl (7.4-10.4); PLATELET 185 x1000/uL (130-400); RED BLOOD CELL COUNT 4.14 mill/uL (4.2-5.4); RED CELL DISTRIBUTION WIDTH 14.4 % (11.6-14.6)
[2022-09-09 06:46] LABS: CHLORIDE 113 mEq/L (98-107)
[2022-09-09 07:40] LABS: CREATINE KINASE MB FRACTION 1.8 ng/mL (0.5-3.6)
[2022-09-09 09:26] LABS: PLATELET ESTIMATE NORMAL
[2022-09-09 09:59] LABS: BG BASE EXCESS -12.7 mmol/L (-2.0-2.0); BG CARBOXYHEMOGLOBIN 0.3 % (0.5-1.5); BG DEOXYHEMOGLOBIN 1.1 % (0.0-5.0); BG METHEMOGLOBIN 0.4 % (0.0-1.5); BG OXYGEN SATURATION 98.9 % (92.0-98.5); BG OXYHEMOGLOBIN 98.2 % (94.0-97.0); BG PH 7.221 (7.350-7.450); BG PO2 158.6 mmHg (75.0-100.0); BG SAMPLE SITE RIGHT RADIAL; BG TOTAL HEMOGLOBIN 12.5 g/dL (12.0-18.0); BG VENT MODE MASK - NRB
[2022-09-09] MEDS: PANTOPRAZOLE SODIUM 40 MG/VIAL IV SCH (10:06)
[2022-09-09] MEDS: ENOXAPARIN 30MG/0.3ML SYR SUBCUT SCH (10:06)
[2022-09-09] MEDS: SODIUM CHLORIDE 0.9% 1,000 ML IV SCH (10:07)
[2022-09-09] MEDS ORDERED: POTASSIUM CHLORIDE INJ 40 MEQ in DEXT 5% WATER 250 ML IV ONE (10:15)
[2022-09-09] MEDS: KCL 20MEQ/100ML X 2 FOR TOTAL KCL 40MEQ/200ML IV SCH ×2 (12:51→16:22)
[2022-09-09] MEDS: SODIUM BICARBONATE 100 MEQ in SODIUM CHLORIDE 0.45% 1,000 ML IV SCH (12:53)
[2022-09-09 15:10] LABS: BG BASE EXCESS -10.2 mmol/L (-2.0-2.0); BG CARBOXYHEMOGLOBIN 0.4 % (0.5-1.5); BG DEOXYHEMOGLOBIN 1.2 % (0.0-5.0); BG METHEMOGLOBIN 0.3 % (0.0-1.5); BG OXYGEN SATURATION 98.8 % (92.0-98.5); BG OXYHEMOGLOBIN 98.1 % (94.0-97.0); BG PCO2 36.7 mmHg (35.0-45.0); BG PH 7.258 (7.350-7.450); BG PO2 133.9 mmHg (75.0-100.0); BG SAMPLE SITE RIGHT RADIAL; BG TOTAL HEMOGLOBIN 14.5 g/dL (12.0-18.0); BG VENT MODE MASK - NRB
[2022-09-09] MEDS ORDERED: VANCOMYCIN 1G PREMIX 200 ML IV SCH (18:00)
[2022-09-09] MEDS ORDERED: VANCOMYCIN 1250MG in DEXTROSE 5% WATER 250ML IV SCH (21:00)
[2022-09-10] VITALS (74 sets, daily range): BP systolic 100–157; BP diastolic 55–88
[2022-09-10] MEDS: SODIUM BICARBONATE 100 MEQ in SODIUM CHLORIDE 0.45% 1,000 ML IV SCH (00:52)
[2022-09-10] MEDS: PHENYLEPHRINE 50 MG in DEXT 5% WATER 245 ML IV PRN ×3 (00:53→16:05)
[2022-09-10] MEDS: PIPERACILLIN/TAZOBACTAM 3.375G in DEXT 5% WATER 50ML IV SCH ×3 (05:08→21:58)
[2022-09-10] MEDS: INSULIN LISPRO 100 UNITS/ML SUBCUT SCH ×4 (05:47→21:00)
[2022-09-10] MEDS: BLOOD SUGAR DIAGNOSTIC STRIP TEST SCH ×4 (05:47→21:57)
[2022-09-10 06:14] LABS: CHLORIDE 111 mEq/L (98-107)
[2022-09-10] MEDS ORDERED: POTASSIUM CHLORIDE INJ 40 MEQ in DEXT 5% WATER 250 ML IV ONE (08:00)
[2022-09-10] MEDS: ENOXAPARIN 40MG/0.4ML SYR SUBCUT SCH (08:58)
[2022-09-10] MEDS: PANTOPRAZOLE SODIUM 40 MG/VIAL IV SCH (08:58)
[2022-09-10] MEDS: KCL 20MEQ/100ML X 2 FOR TOTAL KCL 40MEQ/200ML IV SCH ×2 (09:01→12:03)
[2022-09-10] MEDS ORDERED: FUROSEMIDE 20MG/2ML VIAL IVP NR (10:00)
[2022-09-10 11:40] LABS: BG BASE EXCESS -2.9 mmol/L (-2.0-2.0); BG CARBOXYHEMOGLOBIN 0.3 % (0.5-1.5); BG DEOXYHEMOGLOBIN 2.9 % (0.0-5.0); BG FRACTION INSPIRED OXYGEN 50; BG HCO3 ACT 19.7 mmol/L (22.0-26.0); BG METHEMOGLOBIN 0.4 % (0.0-1.5); BG OXYGEN SATURATION 97.1 % (92.0-98.5); BG OXYHEMOGLOBIN 96.4 % (94.0-97.0); BG PCO2 28.2 mmHg (35.0-45.0); BG PH 7.463 (7.350-7.450); BG PO2 88.1 mmHg (75.0-100.0); BG SAMPLE SITE RIGHT RADIAL; BG TOTAL HEMOGLOBIN 11.8 g/dL (12.0-18.0); BG TOTAL RESPIRATORY RATE 39 b/min; BG VENT MODE MASK - BIPAP
[2022-09-10] MEDS: VANCOMYCIN 1G PREMIX 200 ML IV SCH (17:29)
[2022-09-10] MEDS ORDERED: VANCOMYCIN 1G PREMIX 200 ML IV SCH (18:00)
[2022-09-11] VITALS (53 sets, daily range): BP systolic 96–140; BP diastolic 36–90
[2022-09-11] MEDS: PHENYLEPHRINE 50 MG in DEXT 5% WATER 245 ML IV PRN ×2 (01:37→11:16)
[2022-09-11] MEDS: PIPERACILLIN/TAZOBACTAM 3.375G in DEXT 5% WATER 50ML IV SCH ×3 (06:00→22:08)
[2022-09-11] MEDS: BLOOD SUGAR DIAGNOSTIC STRIP TEST SCH ×4 (06:30→21:47)
[2022-09-11] MEDS: INSULIN LISPRO 100 UNITS/ML SUBCUT SCH ×4 (07:00→21:00)
[2022-09-11] MEDS: PANTOPRAZOLE SODIUM 40 MG/VIAL IV SCH (08:00)
[2022-09-11] MEDS: ENOXAPARIN 40MG/0.4ML SYR SUBCUT SCH (08:00)
[2022-09-11 12:31] LABS: BG BASE EXCESS 1.4 mmol/L (-2.0-2.0); BG CARBOXYHEMOGLOBIN 0.3 % (0.5-1.5); BG DEOXYHEMOGLOBIN 2.2 % (0.0-5.0); BG FRACTION INSPIRED OXYGEN 50; BG HCO3 ACT 24.5 mmol/L (22.0-26.0); BG METHEMOGLOBIN 0.3 % (0.0-1.5); BG OXYGEN SATURATION 97.8 % (92.0-98.5); BG OXYHEMOGLOBIN 97.2 % (94.0-97.0); BG PCO2 33.7 mmHg (35.0-45.0); BG PO2 93.3 mmHg (75.0-100.0); BG SAMPLE SITE RIGHT RADIAL; BG TOTAL HEMOGLOBIN 11.5 g/dL (12.0-18.0); BG TOTAL RESPIRATORY RATE 39 b/min; BG VENT MODE MASK - BIPAP
[2022-09-11 12:37] LABS: BASOPHILS % 0.1 % (0.0-2.0); HEMATOCRIT. 30.3 % (36.0-48.0); HEMOGLOBIN. 10.3 g/dL (12.0-16.0); LYMPHOCYTES % 9.1 % (20.0-50.0); MEAN CORPUSCULAR HEMOGLOBIN 28.2 pg (28.0-32.0); MEAN PLATELET VOLUME 8.5 fl (7.4-10.4); MONOCYTES % 4.3 % (2.0-8.0); NEUTROPHILS % 86.5 % (40.0-76.0); PLATELET 143 x1000/uL (130-400); RED BLOOD CELL COUNT 3.65 mill/uL (4.2-5.4); RED CELL DISTRIBUTION WIDTH 13.5 % (11.6-14.6)
[2022-09-11 13:01] LABS: CHLORIDE 108 mEq/L (98-107)
[2022-09-11] MEDS: MIDODRINE HCL 5MG TABLET PO SCH ×2 (13:10→16:07)
[2022-09-11] MEDS ORDERED: POTASSIUM CHLORIDE 20MEQ/PACKET PO NR (14:00)
[2022-09-11] MEDS ORDERED: POTASSIUM CHLORIDE INJ 40 MEQ in DEXT 5% WATER 500 ML IV ONE (16:00)
[2022-09-11] MEDS: VANCOMYCIN 1G PREMIX 200 ML IV SCH (17:58)
[2022-09-12] VITALS (33 sets, daily range): BP systolic 72–143; BP diastolic 29–89
[2022-09-12 05:30] LABS: BASOPHILS % 0.2 % (0.0-2.0); EOSINOPHILS % 0.1 % (0.0-5.0); HEMATOCRIT. 29.3 % (36.0-48.0); HEMOGLOBIN. 9.9 g/dL (12.0-16.0); LYMPHOCYTES % 8.6 % (20.0-50.0); MEAN CORPUSCULAR HEMOGLOBIN 28.5 pg (28.0-32.0); MEAN CORPUSCULAR VOLUME 84.7 fL (81.0-99.0); MEAN PLATELET VOLUME 8.8 fl (7.4-10.4); MONOCYTES % 3.4 % (2.0-8.0); NEUTROPHILS % 87.7 % (40.0-76.0); PLATELET 122 x1000/uL (130-400); RED BLOOD CELL COUNT 3.46 mill/uL (4.2-5.4); RED CELL DISTRIBUTION WIDTH 13.9 % (11.6-14.6)
[2022-09-12 05:33] LABS: CHLORIDE 109 mEq/L (98-107)
[2022-09-12] MEDS: INSULIN LISPRO 100 UNITS/ML SUBCUT SCH ×4 (05:43→20:29)
[2022-09-12] MEDS: BLOOD SUGAR DIAGNOSTIC STRIP TEST SCH ×4 (05:44→20:29)
[2022-09-12] MEDS: PIPERACILLIN/TAZOBACTAM 3.375G in DEXT 5% WATER 50ML IV SCH ×3 (06:01→21:09)
[2022-09-12] MEDS: PANTOPRAZOLE SODIUM 40 MG/VIAL IV SCH (08:57)
[2022-09-12] MEDS: ENOXAPARIN 40MG/0.4ML SYR SUBCUT SCH (08:57)
[2022-09-12] MEDS: MIDODRINE HCL 5MG TABLET PO SCH ×3 (08:59→17:23)
[2022-09-13] VITALS (26 sets, daily range): BP systolic 84–142; BP diastolic 40–85
[2022-09-13] MEDS: BLOOD SUGAR DIAGNOSTIC STRIP TEST SCH ×4 (05:27→21:33)
[2022-09-13] MEDS: PIPERACILLIN/TAZOBACTAM 3.375G in DEXT 5% WATER 50ML IV SCH ×3 (05:27→22:47)
[2022-09-13] MEDS: INSULIN LISPRO 100 UNITS/ML SUBCUT SCH ×4 (05:27→21:00)
[2022-09-13] MEDS: PANTOPRAZOLE SODIUM 40 MG/VIAL IV SCH (08:20)
[2022-09-13] MEDS: ENOXAPARIN 40MG/0.4ML SYR SUBCUT SCH (08:21)
[2022-09-13] MEDS: MIDODRINE HCL 5MG TABLET PO SCH ×3 (08:21→17:00)
[2022-09-14] VITALS (12 sets, daily range): BP systolic 115–151; BP diastolic 61–107
[2022-09-14] MEDS: BLOOD SUGAR DIAGNOSTIC STRIP TEST SCH ×4 (07:30→20:35)
[2022-09-14] MEDS: PANTOPRAZOLE SODIUM 40 MG/VIAL IV SCH (08:39)
[2022-09-14] MEDS: ENOXAPARIN 40MG/0.4ML SYR SUBCUT SCH (08:39)
[2022-09-14] MEDS: MIDODRINE HCL 5MG TABLET PO SCH ×3 (08:40→17:25)
[2022-09-14] MEDS: INSULIN LISPRO 100 UNITS/ML SUBCUT SCH ×4 (08:41→20:44)
[2022-09-14] MEDS: LEVETIRACETAM 500MG TABLET PO SCH ×2 (15:34→20:35)
[2022-09-15] VITALS (15 sets, daily range): BP systolic 108–154; BP diastolic 42–81
[2022-09-15] MEDS: BLOOD SUGAR DIAGNOSTIC STRIP TEST SCH ×4 (07:30→21:28)
[2022-09-15] MEDS: INSULIN LISPRO 100 UNITS/ML SUBCUT SCH ×4 (08:00→21:00)
[2022-09-15] MEDS: MIDODRINE HCL 5MG TABLET PO SCH ×3 (09:58→17:00)
[2022-09-15] MEDS: PANTOPRAZOLE SODIUM 40 MG/VIAL IV SCH (09:58)
[2022-09-15] MEDS: ENOXAPARIN 40MG/0.4ML SYR SUBCUT SCH (09:58)
[2022-09-15] MEDS: LEVETIRACETAM 500MG TABLET PO SCH ×2 (09:59→21:28)
[2022-09-15] MEDS: METOCLOPRAMIDE HCL 10MG/2ML VIAL IV SCH (17:04)
[2022-09-15 19:59] LABS: VITAMIN B12 SERUM >2000 pg/mL pg/mL (211-911)
[2022-09-15 21:02] LABS: FERRITIN 784 ng/mL (10-291)
[2022-09-15 21:53] LABS: TOTAL IRON BINDING CAPACITY 187 ug/dL (250-450)
[2022-09-16] VITALS (10 sets, daily range): BP systolic 112–146; BP diastolic 65–89
[2022-09-16] MEDS ORDERED: DEXT 5%/0.45% NACL 500ML 1,000 ML IV ONE (00:01)
[2022-09-16] MEDS: METOCLOPRAMIDE HCL 10MG/2ML VIAL IV SCH ×5 (00:01→23:35)
[2022-09-16 04:39] LABS: CHLORIDE 116 mEq/L (98-107)
[2022-09-16 04:48] LABS: PROTHROMBIN TIME 10.8 sec (9.6-11.0)
[2022-09-16 05:57] LABS: BASOPHILS % 0.4 % (0.0-2.0); EOSINOPHILS % 0.5 % (0.0-5.0); HEMATOCRIT. 27.5 % (36.0-48.0); MEAN CORPUSCULAR HEMOGLOBIN 27.7 pg (28.0-32.0); MEAN CORPUSCULAR VOLUME 84.3 fL (81.0-99.0); MEAN PLATELET VOLUME 8.9 fl (7.4-10.4); MONOCYTES % 4.1 % (2.0-8.0); PLATELET 223 x1000/uL (130-400); RED BLOOD CELL COUNT 3.26 mill/uL (4.2-5.4)
[2022-09-16] MEDS: INSULIN LISPRO 100 UNITS/ML SUBCUT SCH ×4 (07:59→20:20)
[2022-09-16] MEDS: BLOOD SUGAR DIAGNOSTIC STRIP TEST SCH ×4 (07:59→20:20)
[2022-09-16] MEDS: LEVETIRACETAM 500MG TABLET PO SCH ×2 (08:00→20:19)
[2022-09-16] MEDS: MIDODRINE HCL 5MG TABLET PO SCH ×3 (08:00→16:39)
[2022-09-16] MEDS: PANTOPRAZOLE SODIUM 40 MG/VIAL IV SCH (08:10)
[2022-09-16] MEDS ORDERED: IPRATROPIUM BROMIDE (0.02%) 0.5MG/2.5ML NEB HHN NR (11:34)
[2022-09-16 12:20] LABS: BG BASE EXCESS 7.7 mmol/L (-2.0-2.0); BG CARBOXYHEMOGLOBIN 0.3 % (0.5-1.5); BG DEOXYHEMOGLOBIN 3.1 % (0.0-5.0); BG FRACTION INSPIRED OXYGEN 50; BG HCO3 ACT 32.9 mmol/L (22.0-26.0); BG METHEMOGLOBIN 0.3 % (0.0-1.5); BG OXYGEN SATURATION 96.9 % (92.0-98.5); BG OXYHEMOGLOBIN 96.3 % (94.0-97.0); BG PCO2 49.4 mmHg (35.0-45.0); BG PH 7.441 (7.350-7.450); BG PO2 88.3 mmHg (75.0-100.0); BG SAMPLE SITE RIGHT RADIAL; BG TOTAL HEMOGLOBIN 10.2 g/dL (12.0-18.0); BG VENT MODE MASK - BIPAP
[2022-09-16] MEDS ORDERED: MIDAZOLAM HCL 2 MG/2 ML VIAL ONE (13:18)
[2022-09-16] MEDS ORDERED: PROPOFOL 200MG/20ML VIAL IV ONE (13:19)
[2022-09-16] MEDS ORDERED: CEFAZOLIN 1000MG PREMIX 50 ML IV NR (14:00)
[2022-09-16] MEDS: IPRATROPIUM/ALBUTEROL 0.5-3(2.5)MG/3ML NEB NEB PRN (15:15)
[2022-09-16] MEDS: IPRATROPIUM BROMIDE (0.02%) 0.5MG/2.5ML NEB HHN SCH (21:28)
[2022-09-17] VITALS (14 sets, daily range): BP systolic 94–164; BP diastolic 44–91
[2022-09-17] MEDS: IPRATROPIUM BROMIDE (0.02%) 0.5MG/2.5ML NEB HHN SCH ×6 (00:42→21:25)
[2022-09-17] MEDS: BLOOD SUGAR DIAGNOSTIC STRIP TEST SCH ×4 (06:39→20:22)
[2022-09-17] MEDS: INSULIN LISPRO 100 UNITS/ML SUBCUT SCH ×4 (06:39→20:28)
[2022-09-17] MEDS: METOCLOPRAMIDE HCL 10MG/2ML VIAL IV SCH ×4 (06:40→23:39)
[2022-09-17 09:11] LABS: BG BASE EXCESS 7.8 mmol/L (-2.0-2.0); BG CARBOXYHEMOGLOBIN 0.3 % (0.5-1.5); BG DEOXYHEMOGLOBIN 3.4 % (0.0-5.0); BG FRACTION INSPIRED OXYGEN 50; BG HCO3 ACT 32.5 mmol/L (22.0-26.0); BG METHEMOGLOBIN 0.4 % (0.0-1.5); BG OXYGEN SATURATION 96.6 % (92.0-98.5); BG OXYHEMOGLOBIN 95.9 % (94.0-97.0); BG PCO2 46.6 mmHg (35.0-45.0); BG PH 7.461 (7.350-7.450); BG PO2 85.6 mmHg (75.0-100.0); BG SAMPLE SITE LEFT RADIAL; BG TOTAL HEMOGLOBIN 9.2 g/dL (12.0-18.0); BG TOTAL RESPIRATORY RATE 32 b/min; BG VENT MODE MASK - BIPAP
[2022-09-17] MEDS: PANTOPRAZOLE SODIUM 40 MG/VIAL IV SCH (09:15)
[2022-09-17] MEDS: MIDODRINE HCL 5MG TABLET PO SCH ×3 (09:15→16:41)
[2022-09-17] MEDS: LEVETIRACETAM 500MG TABLET PO SCH ×2 (09:15→20:22)
[2022-09-17 11:12] LABS: BASOPHILS % 0.4 % (0.0-2.0); EOSINOPHILS % 0.2 % (0.0-5.0); HEMATOCRIT. 26.4 % (36.0-48.0); HEMOGLOBIN. 8.7 g/dL (12.0-16.0); LYMPHOCYTES % 9.9 % (20.0-50.0); MEAN CORPUSCULAR HEMOGLOBIN 28.4 pg (28.0-32.0); MEAN CORPUSCULAR VOLUME 85.6 fL (81.0-99.0); MONOCYTES % 3.6 % (2.0-8.0); NEUTROPHILS % 85.9 % (40.0-76.0); PLATELET 207 x1000/uL (130-400); RED BLOOD CELL COUNT 3.08 mill/uL (4.2-5.4); RED CELL DISTRIBUTION WIDTH 14.3 % (11.6-14.6)
[2022-09-17 11:20] LABS: CHLORIDE 115 mEq/L (98-107)
[2022-09-17] MEDS: FOLIC ACID 1MG TABLET PO SCH (12:37)
[2022-09-17 12:50] LABS: BG BASE EXCESS 6.3 mmol/L (-2.0-2.0); BG CARBOXYHEMOGLOBIN 0.3 % (0.5-1.5); BG DEOXYHEMOGLOBIN 9.1 % (0.0-5.0); BG METHEMOGLOBIN 0.3 % (0.0-1.5); BG OXYGEN SATURATION 90.8 % (92.0-98.5); BG OXYHEMOGLOBIN 90.3 % (94.0-97.0); BG PCO2 39.5 mmHg (35.0-45.0); BG PH 7.498 (7.350-7.450); BG PO2 56.9 mmHg (75.0-100.0); BG SAMPLE SITE RIGHT RADIAL; BG TOTAL HEMOGLOBIN 10.6 g/dL (12.0-18.0); BG VENT MODE MASK - BIPAP
[2022-09-18] VITALS (11 sets, daily range): BP systolic 107–152; BP diastolic 61–79
[2022-09-18] MEDS: IPRATROPIUM BROMIDE (0.02%) 0.5MG/2.5ML NEB HHN SCH ×6 (00:29→20:19)
[2022-09-18] MEDS: METOCLOPRAMIDE HCL 10MG/2ML VIAL IV SCH ×3 (05:16→18:07)
[2022-09-18] MEDS: BLOOD SUGAR DIAGNOSTIC STRIP TEST SCH ×4 (07:53→20:54)
[2022-09-18] MEDS: INSULIN LISPRO 100 UNITS/ML SUBCUT SCH ×4 (07:53→21:11)
[2022-09-18] MEDS: FOLIC ACID 1MG TABLET PO SCH (08:55)
[2022-09-18] MEDS: LEVETIRACETAM 500MG TABLET PO SCH ×2 (08:55→21:11)
[2022-09-18] MEDS: PANTOPRAZOLE SODIUM 40 MG/VIAL IV SCH (08:55)
[2022-09-18] MEDS: MIDODRINE HCL 5MG TABLET PO SCH ×3 (08:57→18:07)
[2022-09-18] MEDS: METHYLPREDNISOLONE SOD SUCC 40 MG/ML VIAL IV SCH ×2 (12:03→18:07)
[2022-09-19] VITALS (11 sets, daily range): BP systolic 106–151; BP diastolic 48–77
[2022-09-19] MEDS: IPRATROPIUM BROMIDE (0.02%) 0.5MG/2.5ML NEB HHN SCH ×3 (00:03→20:27)
[2022-09-19] MEDS: METOCLOPRAMIDE HCL 10MG/2ML VIAL IV SCH (00:33)
[2022-09-19] MEDS: METHYLPREDNISOLONE SOD SUCC 40 MG/ML VIAL IV SCH ×3 (04:34→17:59)
[2022-09-19 06:31] LABS: BASOPHILS % 0.3 % (0.0-2.0); EOSINOPHILS % 0.1 % (0.0-5.0); HEMATOCRIT. 26.5 % (36.0-48.0); HEMOGLOBIN. 8.6 g/dL (12.0-16.0); LYMPHOCYTES % 12.3 % (20.0-50.0); MEAN CORPUSCULAR HEMOGLOBIN 27.6 pg (28.0-32.0); MEAN CORPUSCULAR VOLUME 84.7 fL (81.0-99.0); MEAN PLATELET VOLUME 9.4 fl (7.4-10.4); MONOCYTES % 3.8 % (2.0-8.0); NEUTROPHILS % 83.5 % (40.0-76.0); PLATELET 258 x1000/uL (130-400); RED BLOOD CELL COUNT 3.12 mill/uL (4.2-5.4); RED CELL DISTRIBUTION WIDTH 14.3 % (11.6-14.6)
[2022-09-19] MEDS: BLOOD SUGAR DIAGNOSTIC STRIP TEST SCH ×4 (07:30→21:47)
[2022-09-19] MEDS: INSULIN LISPRO 100 UNITS/ML SUBCUT SCH ×4 (08:00→21:00)
[2022-09-19 08:06] LABS: CHLORIDE 117 mEq/L (98-107)
[2022-09-19] MEDS: IPRATROPIUM/ALBUTEROL 0.5-3(2.5)MG/3ML NEB NEB PRN ×3 (09:00→15:46)
[2022-09-19] MEDS: LEVETIRACETAM 500MG TABLET PO SCH ×2 (10:42→21:47)
[2022-09-19] MEDS: MIDODRINE HCL 5MG TABLET PO SCH ×3 (10:43→16:14)
[2022-09-19] MEDS: FOLIC ACID 1MG TABLET PO SCH (10:44)
[2022-09-19] MEDS: PANTOPRAZOLE SODIUM 40 MG/VIAL IV SCH (10:44)
[2022-09-19] MEDS: FERROUS SULFATE 325MG TABLET PO SCH ×2 (16:10→16:58)
[2022-09-19] MEDS: ASCORBIC ACID 500 MG TABLET PO SCH ×2 (16:10→16:59)
[2022-09-19] MEDS ORDERED: MEROPENEM 1,000 MG in SODIUM CHLORIDE 0.9% 100 ML IV SCH (21:00)
[2022-09-20] VITALS (11 sets, daily range): BP systolic 95–140; BP diastolic 60–86
[2022-09-20] MEDS: IPRATROPIUM BROMIDE (0.02%) 0.5MG/2.5ML NEB HHN SCH ×6 (00:20→20:40)
[2022-09-20 06:10] LABS: BASOPHILS % 0.2 % (0.0-2.0); HEMATOCRIT. 27.7 % (36.0-48.0); HEMOGLOBIN. 9.1 g/dL (12.0-16.0); LYMPHOCYTES % 11.9 % (20.0-50.0); MEAN CORPUSCULAR HEMOGLOBIN 27.8 pg (28.0-32.0); MEAN CORPUSCULAR VOLUME 84.9 fL (81.0-99.0); MEAN PLATELET VOLUME 8.8 fl (7.4-10.4); MONOCYTES % 5.8 % (2.0-8.0); NEUTROPHILS % 82.1 % (40.0-76.0); PLATELET 295 x1000/uL (130-400); RED BLOOD CELL COUNT 3.26 mill/uL (4.2-5.4); RED CELL DISTRIBUTION WIDTH 14.4 % (11.6-14.6)
[2022-09-20] MEDS: METHYLPREDNISOLONE SOD SUCC 40 MG/ML VIAL IV SCH ×2 (06:27→10:00)
[2022-09-20] MEDS: BLOOD SUGAR DIAGNOSTIC STRIP TEST SCH ×4 (07:30→21:00)
[2022-09-20 07:55] LABS: CHLORIDE 115 mEq/L (98-107)
[2022-09-20] MEDS: INSULIN LISPRO 100 UNITS/ML SUBCUT SCH ×4 (08:00→21:00)
[2022-09-20] MEDS: LEVETIRACETAM 500MG TABLET PO SCH ×2 (09:28→22:32)
[2022-09-20] MEDS: MIDODRINE HCL 5MG TABLET PO SCH ×3 (09:28→16:41)
[2022-09-20] MEDS: FOLIC ACID 1MG TABLET PO SCH (09:28)
[2022-09-20] MEDS: FERROUS SULFATE 325MG TABLET PO SCH ×2 (09:28→16:41)
[2022-09-20] MEDS: ASCORBIC ACID 500 MG TABLET PO SCH ×2 (09:28→16:41)
[2022-09-20] MEDS: PANTOPRAZOLE SODIUM 40 MG/VIAL IV SCH (09:29)
[2022-09-20] MEDS: MEROPENEM 1,000 MG in SODIUM CHLORIDE 0.9% 100 ML IV SCH (22:31)
[2022-09-21] VITALS (10 sets, daily range): BP systolic 99–127; BP diastolic 35–86
[2022-09-21] MEDS: IPRATROPIUM BROMIDE (0.02%) 0.5MG/2.5ML NEB HHN SCH ×5 (00:41→16:17)
[2022-09-21] MEDS: MEROPENEM 1,000 MG in SODIUM CHLORIDE 0.9% 100 ML IV SCH ×2 (06:37→13:58)
[2022-09-21] MEDS: INSULIN LISPRO 100 UNITS/ML SUBCUT SCH ×3 (08:00→17:09)
[2022-09-21] MEDS: BLOOD SUGAR DIAGNOSTIC STRIP TEST SCH ×3 (08:03→17:09)
[2022-09-21] MEDS: FOLIC ACID 1MG TABLET PO SCH (08:32)
[2022-09-21] MEDS: LEVETIRACETAM 500MG TABLET PO SCH (08:32)
[2022-09-21] MEDS: ASCORBIC ACID 500 MG TABLET PO SCH ×2 (08:32→16:27)
[2022-09-21] MEDS: FERROUS SULFATE 325MG TABLET PO SCH ×2 (08:32→16:26)
[2022-09-21] MEDS: PANTOPRAZOLE SODIUM 40 MG/VIAL IV SCH (08:32)
[2022-09-21] MEDS: MIDODRINE HCL 5MG TABLET PO SCH ×3 (08:33→16:27)
[2022-09-21 08:51] LABS: BASOPHILS % 0.7 % (0.0-2.0); EOSINOPHILS % 0.4 % (0.0-5.0); HEMATOCRIT. 28.6 % (36.0-48.0); HEMOGLOBIN. 9.2 g/dL (12.0-16.0); LYMPHOCYTES % 19.3 % (20.0-50.0); MEAN CORPUSCULAR HEMOGLOBIN 27.2 pg (28.0-32.0); MEAN CORPUSCULAR VOLUME 84.1 fL (81.0-99.0); MEAN PLATELET VOLUME 8.6 fl (7.4-10.4); MONOCYTES % 4.8 % (2.0-8.0); NEUTROPHILS % 74.8 % (40.0-76.0); PLATELET 277 x1000/uL (130-400); RED CELL DISTRIBUTION WIDTH 14.2 % (11.6-14.6)
[2022-09-21] MEDS ORDERED: PREDNISONE 20MG TABLET PO SCH (09:00)
[2022-09-21 09:47] LABS: CHLORIDE 111 mEq/L (98-107)
[2022-09-21] MEDS: IPRATROPIUM/ALBUTEROL 0.5-3(2.5)MG/3ML NEB NEB PRN (16:16)
== END 2022-09-21 18:55 | DRG 871 ==
LOC: ER 07:32 → MICUNO 09:39 → EDBEDREQ 09:42 → EDBEDREQSVC 09:42 → EDBEDREQTM 09:42 → ENRESERV 16:02 → CANRESERV 16:02 → ENRESERV 16:46 → MICUNO 19:12 → 5EST 09-13 09:45
PROVIDERS: ADMIT Internal Medicine; ATTEND Internal Medicine
PROC: 02HV33Z Insertion of Infusion Device into Superior Vena Cava, Percutaneous Approach (ICD-10-PCS; principal; 2022-09-08)
PROC: B548ZZA Ultrasonography of Superior Vena Cava, Guidance (ICD-10-PCS; 2022-09-08)
PROC: 5A09457 Assistance with Respiratory Ventilation, 24-96 Consecutive Hours, Continuous Positive Airway Pressure (ICD-10-PCS; 2022-09-10)
PROC: 5A09457 Assistance with Respiratory Ventilation, 24-96 Consecutive Hours, Continuous Positive Airway Pressure (ICD-10-PCS; 2022-09-11)
PROC: 0DB78ZX Excision of Stomach, Pylorus, Via Natural or Artificial Opening Endoscopic, Diagnostic (ICD-10-PCS; 2022-09-16)
PROC: 0DH63UZ Insertion of Feeding Device into Stomach, Percutaneous Approach (ICD-10-PCS; 2022-09-16)
PROC: 5A09357 Assistance with Respiratory Ventilation, Less than 24 Consecutive Hours, Continuous Positive Airway Pressure (ICD-10-PCS; 2022-09-16)
DX: A41.9 Sepsis, unspecified organism (principal); G82.50 Quadriplegia, unspecified; G92.8 Other toxic encephalopathy; J18.9 Pneumonia, unspecified organism; R65.21 Severe sepsis with septic shock; J96.01 Acute respiratory failure with hypoxia; E87.20 Acidosis, unspecified; E44.0 Moderate protein-calorie malnutrition; N39.0 Urinary tract infection, site not specified; J81.1 Chronic pulmonary edema; D68.9 Coagulation defect, unspecified; K56.609 Unspecified intestinal obstruction, unspecified as to partial versus complete obstruction; G61.0 Guillain-Barre syndrome; G40.909 Epilepsy, unspecified, not intractable, without status epilepticus; Z20.822 Contact with and (suspected) exposure to COVID-19; I10 Essential (primary) hypertension; N31.9 Neuromuscular dysfunction of bladder, unspecified; E87.6 Hypokalemia; I48.91 Unspecified atrial fibrillation; I25.10 Atherosclerotic heart disease of native coronary artery without angina pectoris; K21.9 Gastro-esophageal reflux disease without esophagitis; M19.90 Unspecified osteoarthritis, unspecified site; R13.11 Dysphagia, oral phase; E80.6 Other disorders of bilirubin metabolism; D69.6 Thrombocytopenia, unspecified; D64.9 Anemia, unspecified; K29.70 Gastritis, unspecified, without bleeding; E11.9 Type 2 diabetes mellitus without complications; I27.20 Pulmonary hypertension, unspecified; Z95.1 Presence of aortocoronary bypass graft; Z93.1 Gastrostomy status; Z74.01 Bed confinement status; Z68.32 Body mass index [BMI] 32.0-32.9, adult
CPT/HCPCS: 36415; 36573; 36600; 71045; 74018; 80048; 80053; 80076; 80202; 81003; 82375; 82550; 82553; 82607; 82728; 82746; 82805; 82962; 83036; 83540; 83550; 83605; 83880; 84145; 84484; 85025; 85044; 87070; 87077; 87186; 87426; 87804; 88305; 92610; 93005; 93306; 93970; 94640; 94660; 99291; A6261; C1725; C9113; C9803; J0690; J1650; J1815; J1940; J2185; J2250; J2370; J2543; J2704; J2765; J2920; J3370; J3480; J3490; J7030; J7050; J7060; J7512; U0003; U0005; A4315; A5200